=== PATIENT | female | born 1980 | race Caucasian/White ===

== ENCOUNTER 2020-02-24 10:20 | Day surgery (SDC) | payer MEDICAID ==
[2020-02-24] MEDS ORDERED: Ondansetron 4 MG/2 ML SDV IVPUSH ONE (10:58)
[2020-02-24] MEDS ORDERED: HYDROmorphone 0.5 MG/0.5 ML Syringe IVPUSH ONE (10:58)
[2020-02-24] MEDS ORDERED: Sodium Chloride 0.9% 1,000 ML IV SCH (11:00)
--- NOTE | 2020-02-24 11:03 | EDM.PDOC ---
ED HPI GENERAL MEDICAL PROBLEM - General Chief Complaint: Abdominal Pain Time Seen by Provider: 02/24/20 10:45 Source of Information: Reports: Patient History Limitations: Reports: No Limitations - History of Present Illness INITIAL COMMENTS - FREE TEXT/NARRATIVE: 39-year-old female with right lower quadrant pain for the past 12 hours. It started last evening late, and has worsened overnight, tends to radiate up into the epigastric area. She is not , her had a vasectomy and she recently had a cycle. No fevers or chills but she is developing nausea, no flank pain or dysuria. She has not had this type of pain in the past. Onset: Gradual Duration: Hour(s): (10 to 12 hours) Location: Reports: Abdomen (Right lower quadrant) Quality: Reports: Sharp (Especially with movement or palpation) Severity: Moderate Associated Symptoms: Reports: Loss of Appetite, Malaise, Nausea/Vomiting ( Nausea but no vomiting). 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 Denies: Fever, Chills HEENT: Reports: No Symptoms Respiratory: Denies: Shortness of Breath Cardiovascular: Denies: Chest Pain GI/Abdominal: Reports: Abdominal Pain, Nausea. Denies: Constipation, Diarrhea, Vomiting : Reports: No Symptoms Neurological: Reports: No Symptoms Free Text/Narrative/Comment: Feels like she is experiencing some breast tenderness over the past 6 hours ED EXAM, GI/ABD - Physical Exam Exam: See Below Exam Limited By: No Limitations General Appearance: Alert, No Apparent Distress (Looks uncomfortable but not distressed) Eyes: Bilateral: Normal Appearance (No jaundice) Respiratory/Chest: No Respiratory Distress, Lungs Clear Cardiovascular: Regular Rate, Rhythm GI/Abdominal Exam: Normal Bowel Sounds, Soft, Tender (Very tender in the right lower quadrant with guarding and rebound) Extremities: Normal Inspection Neurological: Alert, Oriented Psychiatric: Normal Affect, Normal Mood Skin Exam: Warm, Dry Course - Vital Signs Last Recorded V/S: Last Vital Signs Temp 95.5 F L 02/24/20 10:39 Pulse 80 02/24/20 10:39 Resp 18 02/24/20 10:39 BP 126/73 02/24/20 10:39 Pulse Ox 96 02/24/20 10:39 - Orders/Labs/Meds Orders: Active Orders 24 hr Category Date Time Status Patient Status [ADT] Routine ADT 02/24/20 13:17 Active Ambulate [RC] QID Care 02/24/20 13:17 Active Communication Order [RC] ASDIRECTED Care 02/24/20 13:17 Active Dorsiflex/Plantar flex x 10 [RC] Q4HR Care 02/24/20 13:17 Active Head of Bed Elevation [RC] ASDIRECTED Care 02/24/20 13:17 Active Intake and Output [RC] ASDIRECTED Care 02/24/20 13:17 Active Intake and Output [RC] ASDIRECTED Care 02/24/20 13:17 Active Notify Provider Vital Signs [RC] ASDIRECTED Care 02/24/20 13:17 Active Pneumonia Education [RC] UPON Care 02/24/20 13:17 Active RT Incentive Spirometry [RC] Q1HWA Care 02/24/20 13:17 Active Ready for Discharge [RC] PER UNIT ROUTINE Care 02/24/20 13:17 Active Turn, Cough, Deep Breathe [RC] .PRN Care 02/24/20 13:17 Active Up to Chair [RC] ASDIRECTED Care 02/24/20 13:17 Active Vital Signs [RC] PER UNIT ROUTINE Care 02/24/20 13:17 Active Advance Diet Instructions [DIET] Diet 02/24/20 Breakfast Active Advance Diet Instructions [DIET] Diet 02/24/20 Dinner Active CBC WITH AUTO DIFF [HEME] Routine Lab 02/25/20 05:11 Ordered COMPREHENSIVE METABOLIC PN,CMP [CHEM] Routine Lab 02/25/20 05:11 Ordered Acetaminophen/HYDROcodone [Porter 325-5 MG] Med 02/24/20 13:17 Active 1 tab PO Q4H PRN Benzocaine/Cetylpyrd/Menthol [Cepacol Sore Throat] Med 02/24/20 13:17 Active 1 lozenge MUCMEM Q4H PRN Docusate Sodium [Colace] Med 02/24/20 13:17 Active 100 mg PO BID PRN Ibuprofen [Motrin] Med 02/24/20 13:30 Ordered 600 mg PO Q8H Ropivacaine [Naropin 0.5%] 42 ml Med 02/24/20 13:30 Active dexAMETHasone [Dexamethasone] 8 mg EPINEPHrine [Adrenalin] 0.4 mg Sodium Chloride 0.9% [Normal Saline] 35.6 ml NERVRT ASDIRECTED Sodium Chloride 0.9% [Normal Saline] 1,000 ml Med 02/24/20 11:00 Active IV ASDIRECTED Zolpidem [Ambien] Med 02/24/20 13:17 Active 5 mg PO BEDTIME PRN hydrOXYzine HCL [Vistaril] Med 02/24/20 13:17 Active 100 mg IM Q4H PRN Abdominal Binder [OM.PC] Routine Oth 02/24/20 13:17 Ordered Convert IV to Saline Lock [OM.PC] Routine Oth 02/24/20 13:17 Ordered Procedure Education [OM.PC] Routine Oth 02/24/20 13:17 Ordered Sequential Compression Device [OM.PC] Routine Oth 02/24/20 13:17 Ordered Resuscitation Status Routine Resus Stat 02/24/20 13:17 Ordered Medication Orders Hydrocodone Bitart/Acetaminophen (Porter 325-5 Mg) 1 tab PO Q4H PRN PRN Reason: Pain (moderate 4-6) Benzocaine/Menthol (Cepacol Sore Throat) 1 lozenge MUCMEM Q4H PRN PRN Reason: Sore Throat Ropivacaine 42 ml/Dexamethasone 8 mg/Epinephrine HCl 0.4 mg/ Sodium Chloride 35.6 ml 0 ml NERVRT ASDIRECTED NESTOR Last Admin: 02/24/20 13:55 Dose: 80 syringe Docusate Sodium (Colace) 100 mg PO BID PRN PRN Reason: Constipation Hydroxyzine HCl (Vistaril) 100 mg IM Q4H PRN PRN Reason: Breakthrough Pain Sodium Chloride (Normal Saline) 1,000 mls @ 150 mls/hr IV ASDIRECTED NESTOR Last Admin: 02/24/20 11:10 Dose: 150 mls/hr Ibuprofen (Motrin) 600 mg PO Q8H [facility] Zolpidem Tartrate (Ambien) 5 mg PO BEDTIME PRN PRN Reason: Sleep Labs: Laboratory Tests 02/24/20 02/24/20 Range/Units 11:09 11:09 WBC 7.8 (4.5-11.0) K/uL RBC 4.83 (3.30-5.50) M/uL Hgb 14.2 (12.0-15.0) g/dL Hct 41.7 (36.0-48.0) % MCV 86 (80-98) fL MCH 29 (27-31) pg MCHC 34 (32-36) % Plt Count 249 (150-400) K/uL Neut % (Auto) 64 (36-66) % Lymph % (Auto) 25 (24-44) % Page % (Auto) 11 H (2-6) % Eos % (Auto) 1 L (2-4) % Baso % (Auto) 0 (0-1) % Sodium 139 L (140-148) mmol/L Potassium 4.0 (3.6-5.2) mmol/L Chloride 102 (100-108) mmol/L Carbon Dioxide 26 (21-32) mmol/L Anion Gap 15.0 H (5.0-14.0) mmol/L BUN 10 (7-18) mg/dL Creatinine 0.8 (0.6-1.0) mg/dL Est Cr Clr Drug Dosing 107.61 mL/min Estimated GFR (MDRD) > 60 (>60) Glucose 102 (74-106) mg/dL Calcium 8.3 L (8.5-10.1) mg/dL Meds: Medications Generic Name Dose Route Start Last Admin Trade Name Freq PRN Reason Stop Dose Admin Hydrocodone Bitart/Acetaminophen 1 tab 02/24/20 13:17 Porter 325-5 Mg PO Q4H PRN Pain (moderate 4-6) Benzocaine/Menthol 1 lozenge 02/24/20 13:17 Cepacol Sore Throat MUCMEM Q4H PRN Sore Throat Ropivacaine 42 ml/ 0 ml 02/24/20 13:30 02/24/20 13:55 Dexamethasone 8 mg/ NERVRT 80 syringe Epinephrine HCl 0.4 mg/ Sodium ASDIRECTED NESTOR Administration Chloride 35.6 ml Docusate Sodium 100 mg 02/24/20 13:17 Colace PO BID PRN Constipation Hydroxyzine HCl 100 mg 02/24/20 13:17 Vistaril IM Q4H PRN Breakthrough Pain Sodium Chloride 1,000 mls @ 150 mls/hr 02/24/20 11:00 02/24/20 11:10 Normal Saline IV 150 mls/hr ASDIRECTED NESTOR Administration Ibuprofen 600 mg 02/24/20 13:30 Motrin PO Q8H NESTOR Zolpidem Tartrate 5 mg 02/24/20 13:17 Ambien PO BEDTIME PRN Sleep Discontinued Medications Generic Name Dose Route Start Last Admin Trade Name Freq PRN Reason Stop Dose Admin Bupivacaine HCl/Epinephrine Bitart Confirm 02/24/20 13:09 Marcaine 0.5%/Epinephrine 1:200,000 Administered 02/24/20 13:10 Dose 50 ml .ROUTE .STK-MED ONE Dexamethasone Confirm 02/24/20 13:13 Dexamethasone Administered 02/24/20 13:14 Dose 4 mg .ROUTE .STK-MED ONE Diphenhydramine HCl Confirm 02/24/20 11:17 02/24/20 11:30 Benadryl Administered 02/24/20 11:18 Not Given Dose 50 mg .ROUTE .STK-MED ONE Diphenhydramine HCl 25 mg 02/24/20 11:30 02/24/20 11:31 Benadryl IVPUSH 02/24/20 11:31 25 mg ONETIME ONE Administration Fentanyl Confirm 02/24/20 13:13 Sublimaze Administered 02/24/20 13:14 Dose 250 mcg .ROUTE .STK-MED ONE Glycopyrrolate Confirm 02/24/20 13:13 Robinul Administered 02/24/20 13:14 Dose 1 mg .ROUTE .STK-MED ONE Hydromorphone HCl 0.5 mg 02/24/20 10:58 02/24/20 11:12 Dilaudid IVPUSH 02/24/20 10:59 0.5 mg ONETIME ONE Administration Ertapenem 1 gm/ Sodium 100 mls @ 200 mls/hr 02/24/20 13:00 02/24/20 12:56 Chloride IV 02/24/20 13:29 200 mls/hr ONETIME ONE Administration Sodium Chloride Confirm 02/24/20 13:52 Normal Saline Administered 02/24/20 13:53 Dose 500 mls @ as directed .ROUTE .STK-MED ONE Neostigmine Methylsulfate Confirm 02/24/20 13:13 Neostigmine Administered 02/24/20 13:14 Dose 5 mg .ROUTE .STK-MED ONE Ondansetron HCl 4 mg 02/24/20 10:58 02/24/20 11:12 Zofran IVPUSH 02/24/20 10:59 4 mg ONETIME ONE Administration Ondansetron HCl Confirm 02/24/20 13:13 Zofran Administered 02/24/20 13:14 Dose 4 mg .ROUTE .STK-MED ONE Propofol Confirm 02/24/20 13:13 Diprivan 20 Ml Administered 02/24/20 13:14 Dose 200 mg .ROUTE .STK-MED ONE Rocuronium [place] Confirm 02/24/20 13:13 Zemuron Administered 02/24/20 13:14 Dose 50 mg .ROUTE .STK-MED ONE - Re-Assessments/Exams Free Text/Narrative Re-Assessment/Exam: 02/24/20 11:03 The history and physical findings are typical for either appendicitis or or ovarian cyst pathology. CBC and BMP were drawn, IV started for IV Dilaudid and Zofran and a CT without contrast will be done of the abdomen and pelvis. 02/24/20 11:25 Patient developed some erythema of the left arm after the IV Dilaudid so was given 25 mg of IV Benadryl prior to her CT scan. 02/24/20 12:26 IMPRESSION: 1. Fluid-filled appendix with mild wall thickening and minimal surrounding fat stranding is suspicious for early acute appendicitis. 2. Focal hypoattenuating splenic lesion, measuring 1.5 cm is incompletely characterized on this exam. Recommend comparison to prior imaging if available. 3. Right lower lobe ground-glass nodule, measuring 1.1 x 0.5 cm. Findings could be infectious or inflammatory. Recommend correlation to prior exams if available. If no prior imaging is available for comparison recommend follow-up CT in 6-12 months. Dictated by Sandra Hensley MD @ 02/24/2020 12:19:38 PM Above findings were discussed with Dr. Alcocer, surgeon business travel consultant. Departure - Departure Time of Disposition: 13:34 Disposition: Admitted As Inpatient 68 Clinical Impression: Abdominal pain Qualifiers: Abdominal location: right lower quadrant Qualified Code(s): R10.31 - Right lower quadrant pain Appendicitis Qualifiers: Appendicitis type: acute appendicitis Acute appendicitis type: with localized peritonitis Appendicitis gangrene presence: without gangrene Appendicitis perforation presence: without perforation Appendicitis abscess presence: without abscess Qualified Code(s): K35.30 - Acute appendicitis with localized peritonitis, without perforation or gangrene - Discharge Information Sepsis Event Note - Evaluation Sepsis Screening Result: No Definite Risk - Focused Exam Vital Signs: Vital Signs Temp Pulse Resp BP Pulse Ox 02/24/20 10:39 95.5 F L 80 18 126/73 96 02/24/20 10:38 95.5 F L 80 18 126/73 96 Date Exam was Performed: 02/24/20 Time Exam was Performed: 14:09 - My Orders Last 24 Hours: My Active Orders 02/24/20 11:00 Sodium Chloride 0.9% [Normal Saline] 1,000 ml IV ASDIRECTED - Assessment/Plan Last 24 Hours: My Active Orders 02/24/20 11:00 Sodium Chloride 0.9% [Normal Saline] 1,000 ml IV ASDIRECTED
[2020-02-24] MEDS ORDERED: diphenhydrAMINE 50 MG/ML SDV ONE (11:17)
[2020-02-24] MEDS ORDERED: diphenhydrAMINE 50 MG/ML SDV IVPUSH ONE (11:30)
--- NOTE | 2020-02-24 12:20 | CRLCT ---
INDICATION: Right lower quadrant pain TECHNIQUE: CT abdomen and pelvis acquired without IV contrast. No contrast was administered as patient has an allergy COMPARISON: None available FINDINGS: There is a 1.1 x 0.5 cm ground-glass opacity within the right lower lobe (series 2, image 9). The remainder of the lung bases are clear. Negative for pleural effusion. Evaluation of the abdominal viscera is limited due to lack of IV contrast, however the liver, pancreas, and adrenal glands are unremarkable. The gallbladder is nondistended. The kidneys are negative for hydronephrosis or nephrolithiasis. There is a 1.5 cm focal hypoattenuating area within the spleen. The appendix is fluid-filled and measures up to 0.8 cm in dimension. There is questionable wall thickening with mild surrounding fat stranding. Negative for perforation. No appendicolith is seen. No intraperitoneal free air or fluid is visualized. No dilated loops of small bowel are seen to suggest obstruction. There is a tiny fat containing periumbilical hernia. The bones are unremarkable. IMPRESSION: 1. Fluid-filled appendix with mild wall thickening and minimal surrounding fat stranding is suspicious for early acute appendicitis. 2. Focal hypoattenuating splenic lesion, measuring 1.5 cm is incompletely characterized on this exam. Recommend comparison to prior imaging if available. 3. Right lower lobe ground-glass nodule, measuring 1.1 x 0.5 cm. Findings could be infectious or inflammatory. Recommend correlation to prior exams if available. If no prior imaging is available for comparison recommend follow-up CT in 6-12 months. Dictated by Sandra Hensley MD @ 02/24/2020 12:19:38 PM Please note that all CT scans at this facility use dose modulation, iterative reconstruction, and/or weight-based dosing when appropriate to reduce radiation dose to as low as reasonably achievable. Dictated by: Sandra Hensley MD @ 02/24/2020 12:20:12 (Electronically Signed)
[2020-02-24] MEDS ORDERED: Ertapenem 1 GM in Sodium Chloride 0.9% 100 ML IV ONE ×2 (12:28→13:00)
[2020-02-24] MEDS ORDERED: Bupivacaine 0.5%/EPINEPHrine 1:200,000 50 ML MDV ONE (13:09)
[2020-02-24] MEDS ORDERED: fentaNYL 250 MCG/5 ML SDV ONE (13:13)
[2020-02-24] MEDS ORDERED: Dexamethasone 4 MG/ML SDV ONE (13:13)
[2020-02-24] MEDS ORDERED: Propofol 200 MG/20 ML SDV ONE (13:13)
[2020-02-24] MEDS ORDERED: Neostigmine Methylsulfate 1 MG/ML 5 ML Syringe ONE (13:13)
[2020-02-24] MEDS ORDERED: Rocuronium 50 MG/5 ML Vial ONE (13:13)
[2020-02-24] MEDS ORDERED: Glycopyrrolate 0.2 MG/ML 5 ML MDV ONE (13:13)
[2020-02-24] MEDS ORDERED: Ondansetron 4 MG/2 ML SDV ONE (13:13)
[2020-02-24] MEDS ORDERED: Benzocaine/Cetylpyridinium/Menthol Lozenge MUCMEM PRN (13:17)
[2020-02-24] MEDS ORDERED: Docusate Sodium 100 MG Cap PO PRN (13:17)
[2020-02-24] MEDS ORDERED: Acetaminophen/HYDROcodone 325-5 MG Tab PO PRN (13:17)
[2020-02-24] MEDS ORDERED: hydrOXYzine HCL 100 MG/2 ML SDV IM PRN (13:17)
[2020-02-24] MEDS ORDERED: Zolpidem 5 MG Tab PO PRN (13:17)
[2020-02-24] MEDS ORDERED: Sodium Chloride 0.9% 500 ML ONE (13:52)
[2020-02-24] MEDS: Ibuprofen 600 MG Tab PO SCH ×2 (15:56→23:05)
--- NOTE | 2020-02-24 16:42 | CONS ---
DATE OF SERVICE: 02/24/2020 REFERRING PHYSICIAN: CONSULTING PHYSICIAN: John Alcocer MD REASON FOR CONSULTATION: The patient is a pleasant 39-year-old female who developed a course of right lower quadrant abdominal pain. This is approximately less than 24 hours in nature. This is not associated with any fever, nausea, vomiting, or close infectious contacts. The patient also denies any shortness of breath. In addition, the patient is also here for 2 additional findings. She has an asymptomatic splenic lesion of approximately 1.[address] scan. This was not very well visualized. The patient does state she is not a resident here and is a resident of [place]. The patient also has a ground-glass nodule of approximately 1.1 cm at maximum diameter, etiology is unknown. She appears to be asymptomatic with this too. PAST SURGICAL HISTORY: No previous surgery. PAST MEDICAL HISTORY: History of asthma. SOCIAL HISTORY: She is not a smoker. FAMILY HISTORY: Noncontributory. REVIEW OF SYSTEMS: GENERAL: Please see above. HEENT: No respiratory issues. RESPIRATORY: No shortness of breath. CARDIOVASCULAR: No history of myocardial infarction or congenital abnormality. GASTROINTESTINAL: As above. GENITOURINARY: No dysuria. NEUROLOGICAL: No symptoms. PSYCHIATRIC: No gross depression. The remainder review of systems is reviewed and is negative. PHYSICAL EXAMINATION: VITAL SIGNS: Temperature 95.5, which is an erroneous enter, blood pressure 126/73, pulse 80, 96% on room air. HEENT: Pupils are equal. NECK: Supple. LUNGS: Clear. CARDIOVASCULAR: Regular rhythm and rate. RESPIRATORY: Lungs are clear to consultation bilaterally. ABDOMEN: Bowel sounds positive. Pain with palpation of right lower quadrant. EXTREMITIES: Full range of motion. Strength 5/5. NEUROLOGICAL: Oriented x3. LABORATORY RESULTS: Show a normal white blood cell count, normal hemoglobin and normal creatinine. IMAGING: I did review which was discussed as the appendicitis, splenic probable cyst, and ground-glass appearance of right lung. ASSESSMENT AND PLAN: 1. Probable appendicitis. The patient was taken to the operating room for laparoscopic appendectomy and TAP block. We discussed risks, benefits, alternatives, and limitations including, but not limited to, infection, bleeding, injury to abdominal structures such as bowel, bladder, requirement for open surgery, abscess formation, reoperation, and other risks not listed here. The patient understands these risks and wishes to proceed. 2. Right lower lobe ground-glass nodule of approximately 1.1 cm. The patient is a nonsmoker, etiology is unknown. The patient was counseled to have a repeat CT scan in 6 to 12 months. As she is not a resident of this [facility], she will have this followed up with her primary care physician in [place]. 3. Splenic lesion of 1.5 cm. She was again counseled similar as to the lung nodule and this per Radiology appears to be benign, however, should be followed up at a later date when she returns home. John Alcocer MD /[id number]
[2020-02-25] MEDS: Ibuprofen 600 MG Tab PO SCH (08:28)
[2020-02-25] MEDS ORDERED: Ertapenem 1 GM in Sodium Chloride 0.9% 100 ML IV ONE ×2 (08:30→09:00)
--- NOTE | 2020-02-25 10:45 | PN ---
DATE OF SERVICE: 02/25/2020 SUBJECTIVE: The patient is doing very well today. Pain is well controlled with p.o. pain medications. No nausea, vomiting, shortness of breath, or chest pain. She is passing gas. She is afebrile with a normal white blood cell count per nursing report. OBJECTIVE: VITAL SIGNS: Stable. She is afebrile. SKIN: Incisions are healing well. ASSESSMENT: Status post appendectomy. PLAN: The patient will be discharged today, please see discharge summary for further details. John Alcocer MD /[id number]
--- NOTE | 2020-02-25 10:51 | DISCH ---
DISCHARGE DIAGNOSIS: Appendicitis. SUMMARY OF HOSPITAL COURSE: A pleasant 39-year-old female who had a very mild, very early appendicitis. She underwent a laparoscopic appendectomy and received 48 hours of IV antibiotic coverage. Prior to discharge, her white blood cell count is normal, she is afebrile, and her pain is well controlled with Tylenol only. She is passing some gas and is requesting to be discharged. This is very amenable to keep as the patient is very stable and shows no signs of infection and . FOLLOWUP: With Surgery in 7 to 14 days. ACTIVITY: No lifting greater 30 pounds x30 days. DISCHARGE MEDICATIONS: Please see MA.
--- NOTE | 2020-02-25 12:51 | OR ---
DATE OF PROCEDURE: 02/24/2020 SURGEON: John Alcocer MD PROCEDURE: Bilateral transversus abdominis plane blocks. COMPLICATIONS: None. SENIOR RESEARCH MANAGER: None. RISKS: Risks, benefits, alternatives, and limitations including, but not limited to infection, bleeding, and injury to abdominal structures were explained to the patient, who wished to proceed. PROCEDURE IN DETAIL: The patient was placed in supine position. The left transversus plane was identified first. The 80% solution was then injected in this plane under direct visualization. The right side was then performed in a same manner, same fashion, same technique in the same sequence using the same equipment except for needle and syringe. The patient tolerated the procedure well. John Alcocer MD /[id number]
--- NOTE | 2020-02-25 12:54 | OR ---
DATE OF PROCEDURE: 02/24/2020 SURGEON: John Alcocer MD PROCEDURE: Laparoscopic appendectomy. FINDINGS: Nonperforated appendicitis. COMPLICATIONS: None. BARREL PAINTER: None. ANESTHETIC: General. RISKS: Risks, benefits, alternatives, and limitations including, but not limited to infection, bleeding, injury to abdominal structures such as bowel, bladder, the requirement for open surgery and other risks not listed here were all explained to the patient, who wished to proceed. We also discussed abscess formation and requirement for abscess drainage. PROCEDURE IN DETAIL: The patient was placed in a supine position. Supraumbilical curvilinear incision was made. Veress needle was used to enter the abdomen without abnormality. A drop test was performed without abnormality. This was followed by an Optiview trocar. No evidence of enterotomy or injury was noted. Two additional 5 mm ports were entered under direct visualization. The appendix was readily identified. There was no abscess formation. Minimal fluid. This was elevated and transected with mcneal load stapler delivered through the umbilical port. Abdomen was re-insufflated. The appendiceal area was inspected for bleeding, none was noted. The pressure was dropped, none was noted. The abdomen was irrigated with more than 1 L of irrigation. This was removed. The area was checked again for bleeding, none was noted. The air was removed. The wounds were irrigated and closed with 3-0 Vicryl and 4-0 Vicryl interrupted running fashion. Dermabond was applied. The patient tolerated the procedure well. John Alcocer MD /[id number]
== END 2020-02-25 10:35 | disposition home or self-care (01) ==
LOC: JP.ED 10:20 → JP.SDS 12:49 → JP.MS 13:17 → JP.SDS 02-25 10:35
PROVIDERS: ATTEND Surgery
DX: K35.33 Acute appendicitis with perforation, localized peritonitis, and gangrene, with abscess (principal); R91.1 Solitary pulmonary nodule; D73.89 Other diseases of spleen
CPT/HCPCS: 36415; 44970; 74176; 80048; 80053; 85025; 96361; 96365; 96375; 99284; 99285; A9270; J0171; J1100; J1170; J1200; J1335; J2405; J2704; J2710; J2795; J3010; J3490; J7030; J7040; J7050; J7120

== ENCOUNTER 2022-11-22 14:31 | Emergency (ER) | payer MEDICAID ==
[2022-11-22 17:42] LABS: ESTIMATED GFR 73 mL/min (>60)
== END 2022-11-22 18:18 | disposition home or self-care (01) ==
LOC: JP.ED 14:31
DX: N30.01 Acute cystitis with hematuria (principal); Z88.0 Allergy status to penicillin; Z91.041 Radiographic dye allergy status; Z88.5 Allergy status to narcotic agent; Z86.16 Personal history of COVID-19
CPT/HCPCS: 36415; 80053; 81001; 83605; 84443; 84702; 85025; 86140; 86618; 87086; 99284

== ENCOUNTER 2022-12-11 11:32 | Emergency (ER) | payer MEDICAID ==
[2022-12-11] MEDS ORDERED: Lidocaine 2% 30 ML, Alum Hydrox/Mag Hydrox/Simeth 30 ML, diphenhydrAMINE 75 MG PO STA ×3 (12:17)
[2022-12-11] MEDS ORDERED: LORazepam 2 MG/ML SDV IM ONE (12:17)
[2022-12-11] MEDS ORDERED: Lidocaine 2% 30 ML, Alum Hydrox/Mag Hydrox/Simeth 30 ML, diphenhydrAMINE 75 MG PO ONE ×3 (13:00)
== END 2022-12-11 12:56 | disposition home or self-care (01) ==
LOC: JP.ED 11:32
DX: R13.10 Dysphagia, unspecified (principal); T36.8X5A Adverse effect of other systemic antibiotics, initial encounter; J45.909 Unspecified asthma, uncomplicated; D64.9 Anemia, unspecified; Z88.5 Allergy status to narcotic agent; Z88.0 Allergy status to penicillin; Z91.041 Radiographic dye allergy status; Z88.2 Allergy status to sulfonamides
CPT/HCPCS: 96372; 99282; 99283; A9270-GY; J2060

== ENCOUNTER 2022-12-21 13:07 | Emergency (ER) | payer MEDICAID | END 2022-12-21 16:48 | disposition home or self-care (01) | LOC: JP.ED 13:07 | DX: R06.00 Dyspnea, unspecified (principal); Z88.0 Allergy status to penicillin; Z88.5 Allergy status to narcotic agent; Z88.2 Allergy status to sulfonamides; Z91.041 Radiographic dye allergy status | CPT/HCPCS: 71250; 99283; 99285 ==

== ENCOUNTER 2023-01-18 07:25 | Day surgery (SDC) | payer MEDICAID ==
[2023-01-18] MEDS ORDERED: fentaNYL 50 MCG/ML SDV ONE (08:01)
[2023-01-18] MEDS ORDERED: Propofol 200 MG/20 ML SDV ONE ×2 (08:01→09:16)
[2023-01-18] MEDS ORDERED: Midazolam 1 MG/ML 2 ML SDV ONE (08:01)
[2023-01-18] MEDS ORDERED: Lactated Ringers 1,000 ML IV SCH (08:30)
== END 2023-01-18 11:15 | disposition home or self-care (01) ==
LOC: JP.SDS 07:25
PROVIDERS: ATTEND Family Medicine
DX: K29.50 Unspecified chronic gastritis without bleeding (principal); K29.80 Duodenitis without bleeding; K44.9 Diaphragmatic hernia without obstruction or gangrene; Z88.2 Allergy status to sulfonamides; Z88.6 Allergy status to analgesic agent; Z88.5 Allergy status to narcotic agent; Z88.8 Allergy status to other drugs, medicaments and biological substances
CPT/HCPCS: 43239; 45378; J2250; J2704; J3010; J7120